=== PATIENT | female | born 1995 | race Hispanic/Latino ===

== ENCOUNTER 2024-12-21 03:36 | Emergency (ER) | payer OTHER, SELFPAY ==
[~2024-12-21] VITALS: Ht 162.6 cm; Wt 57.9 kg
[2024-12-21 05:26] LABS: BASO # 0.0 10^3/uL (0.0-0.2); BASO % 0.2 % (0.0-1.0); EOS # 0.0 10^3/uL (0.0-0.5); EOS % 0.1 % (0.0-3.0); LYMPH # 1.1 10^3/uL (1.5-5.0); LYMPH % 7.5 % (24.0-44.0); MONO # 0.6 10^3/uL (0.0-0.8); MONO % 4.1 % (2.0-8.0); NEUTROPHILS # 12.5 10^3/uL (1.5-8.5); NEUTROPHILS % 87.4 % (36.0-66.0); PLATELET COUNT, AUTOMATED 177 10^3/uL (150-450)
[2024-12-21 05:49] LABS: ALT/SGPT 20 U/L (7.0-40); AST/SGOT 21 U/L (<34); CALCIUM LEVEL 9.0 MG/DL (8.5-10.1); CARBON DIOXIDE LEVEL 27 MMOL/L (20-31); CHLORIDE LEVEL 103 MMOL/L (98-107); CREATININE FOR GFR 0.63 MG/DL (0.55-1.30); GLOMERULAR FILTRATION RATE > 90.0 (>60); POTASSIUM SERUM 3.8 MMOL/L (3.5-5.1); SODIUM LEVEL 141 MMOL/L (136-145)
[2024-12-21] MEDS: ONDANSETRON 4MG 2ML VIAL IV ONE (05:51)
[2024-12-21] MEDS: MORPHINE 2 MG/ML 1 ML VIAL IV ONE (05:52)
[2024-12-21 05:56] LABS: HCG, SERUM QUALITATIVE NEGATIVE (NEGATIVE)
[2024-12-21] MEDS: KETOROLAC 30 MG/ML 1 ML VIAL IV ONE (06:37)
[2024-12-21 07:21] LABS: KETONE, URINE AUTO RFX 1+ mg/dL (NEGATIVE); LEUKOCYTE ESTERASE UR AUTO RFX NEGATIVE (NEGATIVE); MUCUS, URINE RFX SMALL (NEGATIVE); NITRITE, URINE AUTO RFX NEGATIVE (NEGATIVE); RBC, URINE AUTO RFX 35 /HPF (0-3); SQUAM EPITHELIAL CELL UR AURFX 1 /HPF (0-6); WBC, URINE AUTO RFX 1 /HPF (0-3)
[2024-12-21] MEDS ORDERED: ISOVUE-370 76% 100 ML VIAL As Ordered ONE (07:35)
[2024-12-21 08:30] VITALS: BP 96/50; O2SAT 98
[2024-12-21] MEDS ORDERED: KETO-204 PO (08:34)
[2024-12-21] MEDS ORDERED: TAMS-18 PO (08:34)
[2024-12-21 08:44] VITALS: TEMP 99.3
== END 2024-12-21 09:07 | disposition home or self-care (01) ==
LOC: M ED 03:36
DX: N20.0 Calculus of kidney (principal); N13.30 Unspecified hydronephrosis; Z87.442 Personal history of urinary calculi; Z79.899 Other long term (current) drug therapy
CPT/HCPCS: 74177; 80048; 80076; 81001; 83690; 84703; 85025; 96374; 96375; 99284; J1885; J2405; Q9967